=== PATIENT | female | born 1960 | race Caucasian/White ===

== ENCOUNTER → 2020-02-05 | Outpatient (CLI) | payer OTHER ==
[~2020-02-05] MED LIST: AMOCLA875 PO; OXYACE5T PO
[2020-02-09 15:07] LABS: HPV 16 Negative (Negative); HPV 18 Negative (Negative); HPV OTHER HR TYPES Positive (Negative)
== END | disposition home or self-care (01) ==
LOC: LAB 17:03 → LAB SHORT 17:03
PROVIDERS: Registered Nurse
DX: Z12.4 Encounter for screening for malignant neoplasm of cervix (principal)
CPT/HCPCS: 87624; 87625; G0123

== ENCOUNTER → 2021-03-14 | Outpatient (CLI) | payer OTHER ==
[2021-03-21 14:10] LABS: HPV 16 Negative (Negative); HPV 18 Negative (Negative); HPV OTHER HR TYPES Positive (Negative)
== END | disposition home or self-care (01) ==
LOC: LAB SHORT 08:45
PROVIDERS: Registered Nurse
DX: Z11.51 Encounter for screening for human papillomavirus (HPV) (principal); Z12.4 Encounter for screening for malignant neoplasm of cervix
CPT/HCPCS: 87624; 87625; G0123

== ENCOUNTER → 2021-04-20 | Outpatient (CLI) | payer OTHER | LOC: LAB 07:52 → LAB SHORT 07:52 | DX: R87.619 Unspecified abnormal cytological findings in specimens from cervix uteri (principal) | CPT/HCPCS: 88305 ==

== ENCOUNTER 2023-01-14 07:53 | Day surgery (SDC) | payer OTHER ==
[~2023-01-14] VITALS: Ht 162.6 cm; Wt 77.1 kg
[2023-01-14] MEDS ORDERED: FISH OIL 1,2001 EAC7 PO (08:18)
[2023-01-14] MEDS ORDERED: Lisinopril-Hct1 EAC4 PO (08:18)
[2023-01-14] MEDS ORDERED: AMLO5 PO (08:19)
[2023-01-14] MEDS ORDERED: ZOCOR20 MG (08:19)
[2023-01-14] MEDS ORDERED: FAMO20 PO (08:20)
[2023-01-14] MEDS ORDERED: CALCIUM CARBON500 M1 (08:20)
[2023-01-14] MEDS ORDERED: MONT10T PO (08:20)
== END 2023-01-14 10:15 | disposition home or self-care (01) ==
LOC: ORSCSDS 07:53
PROVIDERS: Internal Medicine Gastroenterology
PROC: 0DBK8ZX Excision of Ascending Colon, Via Natural or Artificial Opening Endoscopic, Diagnostic (ICD-10-PCS; principal; 2023-01-14 09:00)
PROC: 0DB58ZX Excision of Esophagus, Via Natural or Artificial Opening Endoscopic, Diagnostic (ICD-10-PCS; principal; 2023-01-14 09:00)
DX: K21.00 Gastro-esophageal reflux disease with esophagitis, without bleeding (principal); Z12.11 Encounter for screening for malignant neoplasm of colon; D12.2 Benign neoplasm of ascending colon; Z79.899 Other long term (current) drug therapy
CPT/HCPCS: 88305; J2704; J7120

== ENCOUNTER → 2024-12-09 | Outpatient (CLI) | payer OTHER ==
[~2024-12-09] MED LIST changes: +AMLO5 PO; +CALCIUM CARBON500 M1; +FAMO20 PO; +FISH OIL 1,2001 EAC7 PO; +Lisinopril-Hct1 EAC4 PO; +MONT10T PO; +ZOCOR20 MG
[2024-12-15 13:27] LABS: HPV HIGH RISK BY TMA Not Detected; HPV SOURCE Cervical
== END ==
LOC: LAB SHORT 18:26 → LAB 18:26
PROVIDERS: Nurse Practitioner Family
DX: Z12.4 Encounter for screening for malignant neoplasm of cervix (principal)
CPT/HCPCS: 87624; G0123